=== PATIENT | male | born 1955 | race Caucasian/White ===

== ENCOUNTER 2019-11-01 10:08 | Inpatient (IN) | payer MEDICAID, SELFPAY ==
[~2019-11-01] VITALS: Ht 157.5 cm; Wt 49.1 kg
[2019-11-01 10:14] VITALS: BP_SYST 187
[2019-11-01] MEDS ORDERED: methylPREDNISolone SOD SUCC/PF 62.5 MG/ML VIAL IVP ONE (10:30)
[2019-11-01] MEDS ORDERED: IPRATROPIUM/ALBUTEROL SULFATE 3 ML AMPUL.NEB (DUONEB) INH ONE (10:30)
[2019-11-01 10:44] LABS: BASOPHILS # (AUTO) 0.1 K/uL (0.0-0.2); BASOPHILS % (AUTO) 0.6 % (0.0-2.0); EOSINOPHILS # (AUTO) 0.3 K/uL (0.0-0.4); EOSINOPHILS % (AUTO) 2.8 % (0.0-4.0); HEMATOCRIT 49.2 % (36-54); LYMPHOCYTES # (AUTO) 1.6 K/uL (1.0-5.5); LYMPHOCYTES % (AUTO) 14.6 % (20.5-51.5); MEAN CORPUSCULAR HEMOGLOBIN 31 pg (27-31); MEAN CORPUSCULAR HGB CONC 35 % (32-36); MEAN CORPUSCULAR VOLUME 90 fL (79.0-98.0); MONOCYTES # (AUTO) 0.7 K/uL (0.0-1.0); MONOCYTES % (AUTO) 6.4 % (1.7-9.3); NEUTROPHILS # (AUTO) 8.5 K/uL (1.8-7.7); NEUTROPHILS % (AUTO) 75.6 % (40.0-70.0); PLATELET COUNT (AUTO) 431 K/uL (130-430); RED CELL DISTRIBUTION WIDTH 13.2 % (9.0-15.0); WHITE BLOOD COUNT (AUTO) 11.2 K/uL (4.8-10.8)
[2019-11-01] MEDS ORDERED: LORazepam 2 MG/ML VIAL IVP ONE (10:45)
[2019-11-01 11:15] LABS: PROTHROMBIN TIME 10.4 SECS (9.5-12.5)
[2019-11-01 11:17] LABS: CALCIUM 8.5 mg/dL (8.4-11.0); CREATININE 0.7 mg/dL (0.55-1.30); POTASSIUM 4.2 mmol/L (3.5-5.1)
[2019-11-01 11:22] LABS: ALBUMIN 4.2 g/dL (3.4-4.8); C-REACTIVE PROTEIN QUANT 0.4 mg/dL (0-0.5); TOTAL BILIRUBIN 0.8 mg/dL (0.0-1.0)
[2019-11-01 12:30] VITALS: BP_SYST 136
[2019-11-01] MEDS: cefTRIAXone 1 GM in D5W 50 ML IV SCH (13:15)
[2019-11-01] MEDS ORDERED: ALBUTEROL SULFATE 0.083% 2.5 MG/3 ML VIAL.NEB INH PRN (13:15)
[2019-11-01] MEDS ORDERED: IPRATROPIUM BROM 0.5 MG/2.5 ML VIAL.NEB (ATROVENT) INH PRN (13:15)
[2019-11-01 13:24] VITALS: BP_SYST 136
[2019-11-01] MEDS: methylPREDNISolone SOD SUCC/PF 62.5 MG/ML VIAL IVP SCH ×2 (15:00→21:25)
[2019-11-01] MEDS: AZITHROMYCIN 500 MG in NS 250 ML IV SCH (15:00)
[2019-11-01 16:10] VITALS: BP_SYST 134
[2019-11-01] MEDS: ENOXAPARIN SODIUM 30 MG/0.3 ML SYRINGE SUBCUT SCH (18:33)
[2019-11-01] MEDS: IPRATROPIUM BROM 0.5 MG/2.5 ML VIAL.NEB (ATROVENT) INH SCH (19:45)
[2019-11-01] MEDS: ALBUTEROL SULFATE 0.083% 2.5 MG/3 ML VIAL.NEB INH SCH (19:45)
[2019-11-01 20:00] VITALS: BP_SYST 128
[2019-11-02] MEDS: IPRATROPIUM BROM 0.5 MG/2.5 ML VIAL.NEB (ATROVENT) INH SCH ×4 (00:41→19:30)
[2019-11-02] MEDS: ALBUTEROL SULFATE 0.083% 2.5 MG/3 ML VIAL.NEB INH SCH ×4 (00:41→19:30)
[2019-11-02 01:00] VITALS: BP_SYST 126
[2019-11-02] MEDS: methylPREDNISolone SOD SUCC/PF 62.5 MG/ML VIAL IVP SCH ×3 (05:45→21:30)
[2019-11-02 08:00] VITALS: BP_SYST 102
[2019-11-02] MEDS: ENOXAPARIN SODIUM 30 MG/0.3 ML SYRINGE SUBCUT SCH (09:30)
[2019-11-02 12:00] VITALS: BP_SYST 110
[2019-11-02] MEDS: cefTRIAXone 1 GM in D5W 50 ML IV SCH (13:06)
[2019-11-02] MEDS ORDERED: methylPREDNISolone SOD SUCC/PF 62.5 MG/ML VIAL IVP SCH (13:21)
[2019-11-02] MEDS: AZITHROMYCIN 500 MG in NS 250 ML IV SCH (14:00)
[2019-11-02 16:00] VITALS: BP_SYST 113
[2019-11-02 21:30] VITALS: BP_SYST 101
[2019-11-03] MEDS: ALBUTEROL SULFATE 0.083% 2.5 MG/3 ML VIAL.NEB INH SCH ×4 (01:00→18:58)
[2019-11-03] MEDS: IPRATROPIUM BROM 0.5 MG/2.5 ML VIAL.NEB (ATROVENT) INH SCH ×4 (01:00→18:58)
[2019-11-03 02:20] VITALS: BP_SYST 128
[2019-11-03] MEDS: methylPREDNISolone SOD SUCC/PF 62.5 MG/ML VIAL IVP SCH ×3 (06:00→21:37)
[2019-11-03 07:50] VITALS: BP_SYST 127
[2019-11-03] MEDS: ENOXAPARIN SODIUM 30 MG/0.3 ML SYRINGE SUBCUT SCH (09:08)
[2019-11-03 12:00] VITALS: BP_SYST 107
[2019-11-03] MEDS: cefTRIAXone 1 GM in D5W 50 ML IV SCH (13:31)
[2019-11-03] MEDS: AZITHROMYCIN 500 MG in NS 250 ML IV SCH (14:42)
[2019-11-03 16:00] VITALS: BP_SYST 126
[2019-11-03 20:00] VITALS: BP_SYST 113
[2019-11-04 00:20] VITALS: BP_SYST 124
[2019-11-04] MEDS: ALBUTEROL SULFATE 0.083% 2.5 MG/3 ML VIAL.NEB INH SCH ×4 (01:00→20:09)
[2019-11-04] MEDS: IPRATROPIUM BROM 0.5 MG/2.5 ML VIAL.NEB (ATROVENT) INH SCH ×4 (01:22→20:09)
[2019-11-04] MEDS: methylPREDNISolone SOD SUCC/PF 62.5 MG/ML VIAL IVP SCH ×3 (05:24→22:29)
[2019-11-04 08:10] VITALS: BP_SYST 118
[2019-11-04 08:25] VITALS: BP_SYST 118
[2019-11-04] MEDS: ENOXAPARIN SODIUM 30 MG/0.3 ML SYRINGE SUBCUT SCH (08:25)
[2019-11-04] MEDS: cefTRIAXone 1 GM in D5W 50 ML IV SCH (12:34)
[2019-11-04 13:01] VITALS: BP_SYST 118
[2019-11-04] MEDS: AZITHROMYCIN 500 MG in NS 250 ML IV SCH (14:02)
[2019-11-04 16:00] VITALS: BP_SYST 134
[2019-11-04 20:00] VITALS: BP_SYST 138
[2019-11-05] MEDS: ALBUTEROL SULFATE 0.083% 2.5 MG/3 ML VIAL.NEB INH SCH ×4 (00:29→19:44)
[2019-11-05] MEDS: IPRATROPIUM BROM 0.5 MG/2.5 ML VIAL.NEB (ATROVENT) INH SCH ×4 (00:29→19:44)
[2019-11-05 01:15] VITALS: BP_SYST 118
[2019-11-05] MEDS: methylPREDNISolone SOD SUCC/PF 62.5 MG/ML VIAL IVP SCH ×3 (05:16→22:14)
[2019-11-05] MEDS: ENOXAPARIN SODIUM 30 MG/0.3 ML SYRINGE SUBCUT SCH (08:25)
[2019-11-05 08:27] VITALS: BP_SYST 137
[2019-11-05] MEDS: cefTRIAXone 1 GM in D5W 50 ML IV SCH (12:26)
[2019-11-05 12:31] VITALS: BP_SYST 134
[2019-11-05] MEDS: AZITHROMYCIN 500 MG in NS 250 ML IV SCH (13:47)
[2019-11-05 17:14] VITALS: BP_SYST 113
[2019-11-05 20:00] VITALS: BP_SYST 125
[2019-11-06] VITALS: BP_SYST 125
[2019-11-06] MEDS: ALBUTEROL SULFATE 0.083% 2.5 MG/3 ML VIAL.NEB INH SCH ×2 (01:12→07:55)
[2019-11-06] MEDS: IPRATROPIUM BROM 0.5 MG/2.5 ML VIAL.NEB (ATROVENT) INH SCH ×2 (01:12→07:55)
[2019-11-06] MEDS: methylPREDNISolone SOD SUCC/PF 62.5 MG/ML VIAL IVP SCH (05:19)
[2019-11-06 07:57] VITALS: BP_SYST 129
[2019-11-06] MEDS: ENOXAPARIN SODIUM 30 MG/0.3 ML SYRINGE SUBCUT SCH (08:38)
[2019-11-06] MEDS ORDERED: DOXY100C PO (11:39)
[2019-11-06] MEDS ORDERED: PRED10TA PO (11:39)
[2019-11-06] MEDS ORDERED: IPRA4AER INH (11:42)
[2019-11-06 12:00] VITALS: BP_SYST 126
[2019-11-06 12:01] VITALS: BP_SYST 129
== END 2019-11-06 12:51 | disposition home or self-care (01) | DRG 140 ==
LOC: EEVIPCON 10:08 → SED 10:08 → STU 12:05 → SMU 11-04 10:29
PROVIDERS: ADMIT Internal Medicine Hospice and Palliative Medicine; ATTEND Internal Medicine Hospice and Palliative Medicine
PROC: 5A09357 Assistance with Respiratory Ventilation, Less than 24 Consecutive Hours, Continuous Positive Airway Pressure (ICD-10-PCS; principal; 2019-11-01)
DX: J44.1 Chronic obstructive pulmonary disease with (acute) exacerbation (principal); J96.01 Acute respiratory failure with hypoxia; E87.1 Hypo-osmolality and hyponatremia; Z66 Do not resuscitate; J40 Bronchitis, not specified as acute or chronic; F17.200 Nicotine dependence, unspecified, uncomplicated; Z20.828 Contact with and (suspected) exposure to other viral communicable diseases
CPT/HCPCS: 36600; 71045; 80053; 82550-TC; 82728; 82803-TC; 83605; 83615-TC; 83880; 84484; 85025; 85384-TC; 85610-TC; 85730-TC; 86140; 93005; 94640; 94660; 94760; 96374; 96375; 99291; G0378; J0456; J0696; J1650; J2060; J2930; J7050; J7060; J7613; U0003-CS